=== PATIENT | male | born 1975 | race African-American/Black ===

== ENCOUNTER → 2017-11-21 | Emergency (ER) | payer OTHER ==
[~2017-11-21] VITALS: Ht 180.3 cm; Wt 93.0 kg
[~2017-11-21] MED LIST: LEVSIN/SL0.125 MG SL; PEPCID40 MG PO
== END | disposition home or self-care (01) ==
LOC: ER 19:05
DX: K57.90 Diverticulosis of intestine, part unspecified, without perforation or abscess without bleeding (principal); R10.32 Left lower quadrant pain